=== PATIENT | male | born 1960 | race Two or more races ===

== ENCOUNTER 2019-04-06 17:14 | Emergency (ER) | payer OTHER ==
[~2019-04-06] VITALS: Ht 172.7 cm; Wt 85.0 kg
[2019-04-06] MEDS ORDERED: SODIUM CHLORIDE 0.9% 1,000 ML IV ONE (18:18)
[2019-04-06] MEDS ORDERED: ONDANSETRON HCL 4MG/2ML INJ IV STA (18:18)
[2019-04-06 18:57] LABS: BASOPHILS % 0.9 % (0.0-2.0); EOSINOPHILS % 1.3 % (0.0-5.0); HEMATOCRIT. 42.1 % (42.0-52.0); HEMOGLOBIN. 14.3 g/dL (14.0-18.0); LYMPHOCYTES % 21.5 % (20.0-50.0); MEAN CORPUSCULAR HEMOGLOBIN 31.3 pg (28.0-32.0); MONOCYTES % 7.1 % (2.0-8.0); NEUTROPHILS % 69.2 % (40.0-76.0); PLATELET 209 x1000/uL (130-400); RED BLOOD CELL COUNT 4.58 mill/uL (4.7-6.1)
[2019-04-06 19:04] LABS: CHLORIDE 107 mEq/L (98-107)
[2019-04-06 19:05] LABS: PROTHROMBIN TIME 10.3 sec (9.6-11.0)
[2019-04-06] MEDS ORDERED: MECLIZINE 25MG TABLET PO ONE (19:15)
[2019-04-06 21:41] LABS: CLARITY URINE CLEAR (CLEAR); COLOR URINE YELLOW (YELLOW); KETONES URINE NEGATIVE (NEGATIVE); LEUKOCYTE ESTERASE URINE NEGATIVE (NEGATIVE); NITRITE URINE NEGATIVE (NEGATIVE); OCCULT BLOOD URINE NEGATIVE (NEGATIVE); PH URINE >=9.0 (4.5-8.0); PROTEIN URINE NEGATIVE (NEGATIVE); SPECIFIC GRAVITY URINE 1.023 (1.005-1.030); UROBILINOGEN URINE 0.2 E.U./dL (0.2-1.0)
[2019-04-06] MEDS ORDERED: VISCOUS LIDOCAINE 2% 15 ML UDC PO ONE (23:30)
[2019-04-06] MEDS ORDERED: KETOROLAC 30MG/ML VIAL IV STA (23:30)
[2019-04-06] MEDS ORDERED: MAGNESIUM/ALUMINUM HYDROXIDE/SIMETHICONE 30ML UDC PO ONE (23:30)
[2019-04-07 02:00] VITALS: BP 100/64
== END 2019-04-07 03:32 | disposition short-term general hospital (02) ==
LOC: ER 17:14
DX: R42 Dizziness and giddiness (principal); R10.13 Epigastric pain; R61 Generalized hyperhidrosis; H55.00 Unspecified nystagmus; E78.00 Pure hypercholesterolemia, unspecified; R11.0 Nausea
CPT/HCPCS: 36415; 70450; 71045; 80053; 81003; 83880; 84484; 85025; 85610; 93005; 96361; 96374; 99285; J1885; J2405; J7030; J8597; Z7610